=== PATIENT | female | born 1925 | race Hispanic/Latino ===

== ENCOUNTER 2017-06-30 00:12 | Inpatient (IN) | payer MEDICARE, OTHER ==
[2017-06-30 00:12] VITALS: BMI 28.3
--- NOTE | 2017-06-30 00:29 | ED PDOC ---
Arrival/HPI - General Chief Complaint: Weakness/Neurological Deficit Time Seen by Provider: 06/30/17 00:20 Historian: Patient, Family - History of Present Illness Narrative History of Present Illness (Text): 06/30/17 00:27 Delores Velasquez is an 89 year old female, whose past medical history inlcudes hypertension, hyperlipidemia, diabetes, and breast cancer, who presents to the Emergency department brought in by EMS accompanied by family for generalized weakness. Patient states she has been experiencing shortness of breath with associated URI symptoms for 1 week and was placed on antibiotics by her PMD.Patient with orthopnea. Family states tonight patient had periods of confusion and patient notes she felt near-syncopal. Relative also note patient was unable to ambulate on her own secondary to weakness. Patient denies any fever, chills, chest pain, nausea, vomiting, neck pain, headache, dizziness, or any other complaints. PMD: Dr. Oneal Oncologist: Dr. Zepeda Time/Duration: 1 week Symptom Onset: Gradual Symptom Course: Unchanged Activities at Onset: Light Context: Home Past Medical History - Provider Review Nursing Documentation Reviewed: Yes - Infectious Disease Hx of Infectious Diseases: None - Cardiac Hx Hypertension: Yes - Pulmonary Hx Respiratory Disorders: No - Neurological Hx Neurological Disorder: No - HEENT Hx Blind: Yes (OS) - Renal Hx Renal Disorder: No - Endocrine/Metabolic Hx Diabetes Mellitus Type 2: Yes - Hematological/Oncological Hx Blood Disorders: No - Integumentary Hx Dermatological Disorder: No - Musculoskeletal/Rheumatological Hx Falls: No - Gastrointestinal Hx Gastrointestinal Disorders: No - Genitourinary/Gynecological Hx Reproductive Disorders: Yes (breast ca with mets to spine) - Psychiatric Hx Psychophysiologic Disorder: No Hx Substance Use: No - Surgical History Hx Cholecystectomy: Yes Hx Dilation and Curettage: Yes - Anesthesia Hx Malignant Hyperthermia: No Family/Social History - Physician Review Nursing Documentation Reviewed: Yes Family/Social History: Unknown Family HX Smoking Status: Never Smoked Hx Alcohol Use: No Hx Substance Use: No Allergies/Home Meds Allergies/Adverse Reactions: Allergies No Known Allergies Allergy (Verified 08/16/16 20:04) Home Medications: Home Meds Medication Instructions Recorded Confirmed Amoxicillin/Potassium Clav 1 tab PO BID 06/30/17 06/30/17 [Augmentin 500 mg-125 mg] Atorvastatin [Lipitor] 20 mg PO DAILY 06/30/17 06/30/17 Ergocalciferol (Vitamin D2) 50,000 unit PO QWK 06/30/17 06/30/17 [Vitamin D2] Exemestane [Aromasin] 25 mg PO DAILY 06/30/17 06/30/17 Levothyroxine Sodium [Levoxyl] 88 mcg PO DAILY 06/30/17 06/30/17 Lisinopril [Zestril] 20 mg PO BID 06/30/17 06/30/17 Metoprolol Succinate [Toprol XL] 100 mg PO DAILY 06/30/17 06/30/17 amLODIPine [Norvasc] 10 mg PO DAILY 06/30/17 06/30/17 glyBURIDE [Glyburide] 5 mg PO BID 06/30/17 06/30/17 hydroCHLOROthiazide [Hydrodiuril] 25 mg PO DAILY 06/30/17 06/30/17 Review of Systems - Physician Review All systems were reviewed & negative as marked: Yes - Review of Systems Constitutional: Other (+generalized weakness). absent: Fevers Eyes: Normal ENT: Other (+URI symptoms) Respiratory: SOB Cardiovascular: Other (+near-syncopal). absent: Chest Pain Gastrointestinal: Normal. absent: Abdominal Pain, Diarrhea, Nausea, Vomiting Genitourinary Female: Normal. absent: Dysuria, Frequency, Hematuria, Urine Output Changes Musculoskeletal: Normal. absent: Back Pain, Neck Pain Skin: Normal. absent: Rash Neurological: Other (+disoriented). absent: Headache, Dizziness Endocrine: Normal Hemo/Lymphatic: Normal Psychiatric: Normal Physical Exam Vital Signs Reviewed: Yes Vital Signs Temp Pulse Resp BP Pulse Ox 06/30/17 02:25 125/67 06/30/17 01:57 54 L 16 143/88 99 06/30/17 00:22 97.7 F 61 18 163/72 H 99 Temperature: Afebrile Blood Pressure: Hypertensive Pulse: Regular Respiratory Rate: Normal Appearance: Positive for: Well-Appearing, Non-Toxic, Comfortable Pain Distress: None Mental Status: Positive for: Alert and Oriented X 3 - Systems Exam Head: Present: Atraumatic, Normocephalic Pupils: Present: PERRL Extroacular Muscles: Present: EOMI Conjunctiva: Present: Normal Mouth: Present: Moist Mucous Membranes Neck: Present: Normal Range of Motion. No: Meningeal Signs, MIDLINE TENDERNESS , Paraspinal Tenderness Respiratory/Chest: Present: Good Air Exchange, Rhonchi. No: Respiratory Distress, Accessory Muscle Use Cardiovascular: Present: Regular Rate and Rhythm, Normal S1, S2. No: Murmurs Abdomen: Present: Distention (Globus abdomen), Normal Bowel Sounds. No: Tenderness, Peritoneal Signs Back: Present: Normal Inspection. No: CVA Tenderness, Midline Tenderness, Paraspinal Tenderness Upper Extremity: Present: Normal Inspection, Normal ROM, NORMAL PULSES, Neurovascularly Intact, Capillary Refill < 2s. No: Cyanosis, Edema, Tenderness , Swelling, Erythema, Temperature Abnormalties, Deformity Lower Extremity: Present: Edema (Chronic bilateral lower extremity edema), NORMAL PULSES, Normal ROM, Erythema (Patches of erythema bilaterally, which is chronic), Neurovascularly Intact, Capillary Refill < 2 s, Other (Chronic venous stasis chnages). No: Tenderness, Deformity, Temperature Abnormalties Neurological: Present: GCS=15, CN II-XII Intact, Speech Normal, Motor Func Grossly Intact, Normal Sensory Function, Normal Cerebellar Funct Skin: Present: Warm, Dry, Normal Color. No: Rashes Psychiatric: Present: Alert, Oriented x 3, Normal Insight, Normal Concentration Medical Decision Making ED Course and Treatment: 06/30/17 00:27 Impression: 89 year old female complaining of weakness, near-syncope tonight with shortness of breath and URI symptoms for 1 week. Plan: -- CT Head w/o contrast -- EKG -- Chest X-ray -- Labs, cardiac enzymes, BNP -- Reassess and disposition Prior Visits: Notes and results from previous visits were reviewed. On 08/09/2016, pt was seen in the Emergency department for RLQ pain and weakness. Pt was admitted to the hospital for further evaluation. Progress Notes: Reviewed EKG, NSR at 60 bpm. LAD. RBBB. LVH. Non-specific ST/T wave changes. 06/30/17 01:37 Chest X-ray reviewed, shows scoliosis and mildly increased pulmonary vascular markings. 06/30/17 01:39 CT Head shows: Brain: Cerebral and cerebellar volume loss. Patchy hypodensity is seen in the periventricular and subcortical white matter. No hemorrhage. Ventricles: Unremarkable. No ventriculomegaly. Bones/joints: No acute fracture. Degenerative changes from occiput to C2. Soft tissues: Unremarkable. Vasculature: Vascular calcifications. Sinuses: Unremarkable. No acute sinusitis. Mastoid air cells: Unremarkable. No mastoid effusion. Orbits: Bilateral eye lenses are not well seen. This finding is unchanged from prior examination. Dental: Edentulous maxilla.Mandibular partial dentures in place. IMPRESSION: No evidence of an acute intracranial hemorrhage, midline shift or mass effect is identified. 06/30/17 02:08 BNP: 2000, Lasix ordered. 06/30/17 02:[address] Avendaño, who is aware and agrees with plan. Accepts pt in to his service. Pt will go to Telemetry observation for near-syncope and mild CHF. - Lab Interpretations Lab Results: 06/30/17 01:10 06/30/17 01:10 Lab Results 06/30/17 01:10: WBC 6.5, RBC 3.61, Hgb 10.8 L, Hct 34.0 L, MCV 94.2, MCH 29.9, MCHC 31.8, RDW 17.4 H, Plt Count 167, MPV 11.5 H 06/30/17 01:10: Sodium 138, Potassium 4.8, Chloride 101, Carbon Dioxide 27, Anion Gap 15, BUN 53 H, Creatinine 1.1, Est GFR ( Amer) 57, Est GFR (Non- Af Amer) 47, Random Glucose 62 L, Calcium 10.1, Total Bilirubin 0.6, AST 59 H, ALT 53, Alkaline Phosphatase 332 H, Lactate Dehydrogenase 499, Total Creatine Kinase 47, Troponin I < 0.01 D, NT-Pro-B Natriuret Pep 2000 H, Total Protein 7.5, Albumin 3.8, Globulin 3.7, Albumin/Globulin Ratio 1.0 L 06/30/17 01:10: PT 10.2, INR 0.90 L, APTT 33.6 I have reviewed the lab results: Yes - RAD Interpretation Radiology Orders: 06/30/17 00:28 CHEST PORTABLE [RAD] Stat 06/30/17 00:30 HEAD W/O CONTRAST [CT] Stat Human Services Professional: ED Physician, Radiologist - EKG Interpretation Interpreted by ED Physician: Yes Type: 12 lead EKG - Medication Orders Current Medication Orders: Discontinued Medications Furosemide (Lasix) 40 mg IVP ONCE ONE Stop: 01/13/18 02:09 Last Admin: 06/30/17 02:25 Dose: 40 mg MAR Blood Pressure Document 06/30/17 02:25 RD (Rec: 06/30/17 02:25 RD [id number]) Blood Pressure Blood Pressure (100/60-150/90 mm Hg) 125/67 IVP Administration Document 06/30/17 02:25 RD (Rec: 06/30/17 02:25 RD [id number][place] Charges for Administration # of IVP Administrations 1 - Scribe Statement The provider has reviewed the documentation as recorded by the Urvashi Perez Provider Scribe Attestation: All medical record entries made by the Scribe were at my direction and personally dictated by me. I have reviewed the chart and agree that the record accurately reflects my personal performance of the history, physical exam, medical decision making, and the department course for this patient. I have also personally directed, reviewed, and agree with the discharge instructions and disposition. Disposition/Present on Arrival - Present on Arrival Any Indicators Present on Arrival: No History of DVT/PE: No History of Uncontrolled Diabetes: No Urinary Catheter: No History of Decub. Ulcer: No History Surgical Site Infection Following: None - Disposition Have Diagnosis and Disposition been Completed?: Yes Diagnosis: Near syncope, CHF (congestive heart failure) Disposition: HOSPITALIZED Disposition Time: 02:23 Patient Plan: Observation Patient Problems: Current Active Problems Problem Status Onset Near syncope Acute Condition: STABLE Discharge Instructions (ExitCare): Heart Failure (ED) Referrals: Alex Oneal MD [Primary Care Provider] - Follow up with primary Forms: NPR (Kiswahili)
[2017-06-30 01:34] LABS: ALBUMIN 3.8 g/dL (3.0-4.8); ALT/SGPT 53 U/L (7-56); AST/SGOT 59 U/L (14-36); BLOOD UREA NITROGEN 53 mg/dL (7-21); CALCIUM 10.1 mg/dL (8.4-10.5); GFR AFRICAN-AMERICAN 57; GFR NON-AFRICAN AMERICAN 47
--- NOTE | 2017-06-30 01:38 | CT ---
EXAM: CT Head Without Intravenous Contrast CLINICAL HISTORY: 89 years old, female; Signs and symptoms; Dizziness; Additional info: Near syncope TECHNIQUE: Axial computed tomography images of the head/brain without intravenous contrast. All CT scans at this facility use one or more dose reduction techniques, viz.: automated exposure control; ma/kV adjustment per patient size (including targeted exams where dose is matched to indication; i.e. head); or iterative reconstruction technique. 387 images are submitted. Coronal and sagittal reformatted images were created and reviewed. COMPARISON: CT - HEAD W/O CONTRAST 2016-01-15 20:47 FINDINGS: Brain: Cerebral and cerebellar volume loss. Patchy hypodensity is seen in the periventricular and subcortical white matter. No hemorrhage. Ventricles: Unremarkable. No ventriculomegaly. Bones/joints: No acute fracture. Degenerative changes from occiput to C2. Soft tissues: Unremarkable. Vasculature: Vascular calcifications. Sinuses: Unremarkable. No acute sinusitis. Mastoid air cells: Unremarkable. No mastoid effusion. Orbits: Bilateral eye lenses are not well seen. This finding is unchanged from prior examination. Dental: Edentulous maxilla.Mandibular partial dentures in place. IMPRESSION: No evidence of an acute intracranial hemorrhage, midline shift or mass effect is identified.
[2017-06-30 01:42] LABS: B-TYPE NATRIURETIC PEPTIDE 2000 pg/mL (0-450); TROPONIN I < 0.01 ng/mL
[2017-06-30 01:48] LABS: INR 0.9 (0.93-1.08); PARTIAL THROMBOPLASTIN TIME 33.6 Seconds (25.1-36.5); PROTHROMBIN TIME 10.2 SECONDS (9.4-12.5)
[2017-06-30 01:52] LABS: HEMOGLOBIN 10.8 g/dL (12.0-16.0); MEAN CELL VOLUME 94.2 fl (80.0-105.0); MEAN CORPUSCULAR HEMOGLOBIN 29.9 pg (25.0-35.0); MEAN CORPUSCULAR HGB CONC 31.8 g/dl (31.0-37.0); RBC 3.61 10^6/uL (3.5-6.1); WHITE BLOOD COUNT 6.5 10^3/ul (4.5-11.0)
[2017-06-30 01:53] LABS: RED CELL DISTRIBUTION WIDTH 17.4 % (11.5-14.5)
[2017-06-30 01:54] LABS: MEAN PLATELET VOLUME 11.5 fl (7.0-11.0)
[2017-06-30] MEDS ORDERED: Dextrose 50% SYRINGE Inj (50 ml) IVP ONE ×3 (04:31→21:42)
[2017-06-30] MEDS ORDERED: Dextrose 50% SYRINGE Inj (50 ml) ONE ×3 (04:32→21:41)
--- NOTE | 2017-06-30 08:45 | RAD ---
HISTORY: sob COMPARISON: 08/12/2016 FINDINGS: LUNGS: No active pulmonary disease. PLEURA: Small bilateral pleural effusions CARDIOVASCULAR: Moderate cardiomegaly. OSSEOUS STRUCTURES: Scoliosis VISUALIZED UPPER ABDOMEN: Normal. OTHER FINDINGS: The patient is severely rotated to the left side. IMPRESSION: Small bilateral pleural effusions
--- NOTE | 2017-06-30 15:39 | CARD ---
APPROVED REPORT EKG Measurement Heart [id number] <Conclusion> Normal sinus rhythm Possible Left atrial enlargement Left axis deviation Right bundle branch block Left ventricular hypertrophy Abnormal ECG
[2017-06-30] MEDS: Metoprolol Succinate 100 mg XL Tab PO SCH (18:55)
[2017-06-30] MEDS: Levothyroxine 88 MCG TAB PO SCH (18:56)
--- NOTE | 2017-06-30 22:16 | CP.PCM.PN ---
Subjective - Date & Time of Evaluation Date of Evaluation: 06/30/17 Time of Evaluation: 22:13 - Subjective Subjective: S: Nurse called for FSBS of 30 mg % fro Ms Ron. Has no complaints. States that she has not been eating enough. Medical record was reviewed. O: Last Vital Signs 3 Temp 96.4 F L 06/30/17 17:55 Pulse 61 06/30/17 18:56 Resp 18 06/30/17 17:55 BP 148/72 06/30/17 18:56 Pulse Ox 95 06/30/17 17:55 Awake , alert , not in distress. LUNGS: Normal breathing pattern. A: Hypoglycemia. P:Dextrose 50 % 50 CC IV stat. Objective - Vital Signs/Intake and Output Vital Signs (last 24 hours): Temp Pulse Resp BP Pulse Ox 96.4 F L 61 18 148/72 95 06/30/17 17:55 06/30/17 18:56 06/30/17 17:55 06/30/17 18:56 06/30/17 17:55 Intake and Output: 06/30/17 07/01/17 18:59 06:59 Intake Total 600 Balance 600 - Medications Medications: Current Medications Amlodipine Besylate (Norvasc) 10 mg PO DAILY [facility] Last Admin: 06/30/17 18:56 Dose: 10 mg Atorvastatin Calcium (Lipitor) 20 mg PO DAILY [facility] Last Admin: 06/30/17 18:56 Dose: 20 mg Hydrochlorothiazide (Hydrodiuril) 25 mg PO DAILY [facility] Last Admin: 06/30/17 18:56 Dose: 25 mg Dextrose (Dextrose 5% In Water 1000 Ml) 1,000 mls @ 70 mls/hr IV .[id number] [facility] Last Admin: 06/30/17 15:38 Dose: 70 mls/hr Levothyroxine Sodium (Synthroid) 88 mcg PO DAILY [facility] Last Admin: 06/30/17 18:56 Dose: 88 mcg Lisinopril (Zestril) 20 mg PO BID [facility] Last Admin: 06/30/17 18:56 Dose: 20 mg Metoprolol Succinate (Toprol Xl) 100 mg PO DAILY [facility] Last Admin: 06/30/17 18:55 Dose: 100 mg - Labs Labs: PT 10.2 SECONDS (9.4-12.5) 06/30/17 01:10 INR 0.90 (0.93-1.08) L 06/30/17 01:10 APTT 33.6 Seconds (25.1-36.5) 06/30/17 01:10
[2017-07-01] MEDS: Metoprolol Succinate 100 mg XL Tab PO SCH (09:43)
[2017-07-01] MEDS: Levothyroxine 88 MCG TAB PO SCH (09:44)
[2017-07-01] MEDS ORDERED: Dextrose 50% SYRINGE Inj (50 ml) ONE (11:21)
[2017-07-01] MEDS: Dextrose 50% SYRINGE Inj (50 ml) IVP SCH ×3 (13:48→22:36)
--- NOTE | 2017-07-02 00:35 | HP ---
DATE OF EVALUATION: 06/30/2017 HISTORY OF PRESENT ILLNESS: Ms. Velasquez is an 89-year-old female, presented to the ED with a history of syncope. She has history of breast cancer. She was also complaining of URI. Rapid flu test was negative in the ER. She was found to be hypoglycemic with sugars of 40. She has history of diabetes mellitus type 2, on Glucotrol XL for diabetes. She has a history of breast cancer in remission. Hyperlipidemia and hypertension, blood pressure controlled on current medications. No fever. No chills. No rigors. PAST MEDICAL HISTORY: Diabetes mellitus type 2, history of breast cancer, metastatic lesion to the spine. SOCIAL HISTORY: Never smoked. No history of alcohol abuse. ALLERGIES: NO KNOWN DRUG ALLERGIES. HOME MEDICATIONS: Augmentin, vitamin D, Aromasin 25 mg daily, Synthroid 88 mcg daily, lisinopril 20 mg daily, amlodipine 10 mg daily, metoprolol XL 100 mg daily, hydrochlorothiazide 25 mg daily. REVIEW OF SYSTEMS: As per HPI. Rest of 12-point review of systems reviewed and negative. PHYSICAL EXAMINATION: GENERAL: Comfortable in bed, in no acute distress. VITAL SIGNS: Temperature 97.8, heart rate is 60 per minute, respiratory rate is 18 per minute, blood pressure 160/72. Pulse oximetry is 99% on room air. HEENT: Normal. NECK: No lymphadenopathy. CHEST: Air entry present and equal bilaterally. No added sounds. CARDIOVASCULAR: S1 and S2 normal. No murmur. No gallop. ABDOMEN: Soft and nontender. No hepatosplenomegaly. EXTREMITIES: Bilateral leg edema. MERCANTILE REPORTER: Alert and oriented x3. No focal sensory or motor deficits. SKIN: No petechiae. No rash. DIAGNOSTIC DATA: CAT scan of the head is unremarkable. Chest x-ray, no infiltrate. LABORATORY DATA: White count 6.5, hemoglobin 10.8, hematocrit 34, and platelets 167. Sodium 138, potassium 4.8, BUN 53, creatinine 1.1, glucose 62. ASSESSMENT AND PLAN: She will be admitted to the hospital telemetry monitoring. Amlodipine, we will continue antihypertensive, Norvasc 10 mg daily, Lipitor 20 mg daily. She will be started on dextrose drip at 70 mL an hour, D5 dextrose. We will continue thiazide 25 mg daily. Continue levothyroxine 88 mcg daily, lisinopril 20 mg p.o. b.i.d., metoprolol 100 mg daily. Regular diet. We will hold all antidiabetic medications. Leesa Valenzuela MD
--- NOTE | 2017-07-02 03:44 | CP.PCM.PN ---
Subjective - Date & Time of Evaluation Date of Evaluation: 07/02/17 Time of Evaluation: 03:40 - Subjective Subjective: Patient was seen at bedside because nurse calls and tells me that patient complains of not feeling well. BP is 118/59---> 146/53, HR 59/min, has been lisandro mostly, pulse ox 93% on 3L/ min, FSBS- 120 mg%. Patient has been on D5W for low sugar. Patient states that she can not catch her breath. Denies chest pain, nausea, sweating , palpitation. Medical record was reviewed. This 89 year old white woman was admitted with syncope. Has PMH of DM II , breast cancer with mets to spine. Objective - Vital Signs/Intake and Output Vital Signs (last 24 hours): Temp Pulse Resp BP Pulse Ox 98.7 F 56 L 18 118/59 L 94 L 07/02/17 00:01 07/02/17 00:01 07/02/17 00:01 07/02/17 00:01 07/01/17 18:00 Intake and Output: 07/01/17 07/02/17 18:59 06:59 Intake Total 770 780 Output Total 700 Balance 770 80 - Medications Medications: Current Medications Amlodipine Besylate (Norvasc) 10 mg PO DAILY [facility] Last Admin: 07/01/17 09:44 Dose: 10 mg Atorvastatin Calcium (Lipitor) 20 mg PO DAILY [facility] Last Admin: 07/01/17 09:44 Dose: 20 mg Dextrose (Dextrose 50% Inj) 50 ml IVP QID [facility] Last Admin: 07/01/17 22:36 Dose: 50 ml Hydrochlorothiazide (Hydrodiuril) 25 mg PO DAILY [facility] Last Admin: 07/01/17 09:42 Dose: 25 mg Dextrose (Dextrose 5% In Water 1000 Ml) 1,000 mls @ 70 mls/hr IV .[id number] [facility] Last Admin: 07/01/17 22:36 Dose: 70 mls/hr Levothyroxine Sodium (Synthroid) 88 mcg PO DAILY [facility] Last Admin: 07/01/17 09:44 Dose: 88 mcg Lisinopril (Zestril) 20 mg PO BID [facility] Last Admin: 07/01/17 18:46 Dose: 20 mg Metoprolol Succinate (Toprol Xl) 100 mg PO DAILY [facility] Last Admin: 07/01/17 09:43 Dose: 100 mg - Labs Labs: PT 10.2 SECONDS (9.4-12.5) 06/30/17 01:10 INR 0.90 (0.93-1.08) L 06/30/17 01:10 APTT 33.6 Seconds (25.1-36.5) 06/30/17 01:10 Most Recent Lab Values WBC 6.5 10^3/ul (4.5-11.0) 06/30/17 01:10 RBC 3.61 10^6/uL (3.5-6.1) 06/30/17 01:10 Hgb 10.8 g/dL (12.0-16.0) L 06/30/17 01:10 Hct 34.0 % (36.0-48.0) L 06/30/17 01:10 MCV 94.2 fl (80.0-105.0) 06/30/17 01:10 MCH 29.9 pg (25.0-35.0) 06/30/17 01:10 MCHC 31.8 g/dl (31.0-37.0) 06/30/17 01:10 RDW 17.4 % (11.5-14.5) H 06/30/17 01:10 Plt Count 167 10^3/uL (120.0-450.0) 06/30/17 01:10 MPV 11.5 fl (7.0-11.0) H 06/30/17 01:10 PT 10.2 SECONDS (9.4-12.5) 06/30/17 01:10 INR 0.90 (0.93-1.08) L 06/30/17 01:10 APTT 33.6 Seconds (25.1-36.5) 06/30/17 01:10 Sodium 138 mmol/L (132-148) 06/30/17 01:10 Potassium 4.8 mmol/L (3.6-5.0) 06/30/17 01:10 Chloride 101 mmol/L (98-107) 06/30/17 01:10 Carbon Dioxide 27 mmol/L (21-33) 06/30/17 01:10 Anion Gap 15 (10-20) 06/30/17 01:10 BUN 53 mg/dL (7-21) H 06/30/17 01:10 Creatinine 1.1 mg/dl (0.7-1.2) 06/30/17 01:10 Est GFR ( Amer) 57 06/30/17 01:10 Est GFR (Non-Af Amer) 47 06/30/17 01:10 POC Glucose (mg/dL) 121 mg/dL (65-110) H 07/02/17 02:47 Random Glucose 62 mg/dL (70-110) L 06/30/17 01:10 Calcium 10.1 mg/dL (8.4-10.5) 06/30/17 01:10 Total Bilirubin 0.6 mg/dL (0.2-1.3) 06/30/17 01:10 AST 59 U/L (14-36) H 06/30/17 01:10 ALT 53 U/L (7-56) 06/30/17 01:10 Alkaline Phosphatase 332 U/L (38-126) H 06/30/17 01:10 Lactate Dehydrogenase 499 U/L (333-699) 06/30/17 01:10 Total Creatine Kinase 47 U/L (35-230) 06/30/17 01:10 Troponin I < 0.01 ng/mL D 06/30/17 01:10 NT-Pro-B Natriuret Pep 2000 pg/mL (0-450) H 06/30/17 01:10 Total Protein 7.5 g/dL (5.8-8.3) 06/30/17 01:10 Albumin 3.8 g/dL (3.0-4.8) 06/30/17 01:10 Globulin 3.7 gm/dL 06/30/17 01:10 Albumin/Globulin Ratio 1.0 (1.1-1.8) L 06/30/17 01:10 - Constitutional Appears: Well, No Acute Distress - Head Exam Head Exam: ATRAUMATIC, NORMAL INSPECTION, NORMOCEPHALIC Additional comments: obese. - Eye Exam Eye Exam: Normal appearance - ENT Exam ENT Exam: Mucous Membranes Moist - Neck Exam Neck Exam: Normal Inspection - Cardiovascular Exam Cardiovascular Exam: REGULAR RHYTHM, JVD (+), +S1 (Normal.), +S2 (Normal.) - GI/Abdominal Exam GI & Abdominal Exam: absent: Distended - Rectal Exam Rectal Exam: Deferred - Exam Additional comments: Deferred. - Extremities Exam Extremities Exam: Normal Inspection, Pedal Edema (++) - Back Exam Back Exam: NORMAL INSPECTION - Neurological Exam Neurological Exam: Alert, Awake, Oriented x3 - Psychiatric Exam Psychiatric exam: Normal Affect, Normal Mood - Skin Skin Exam: Normal Color Assessment and Plan - Assessment and Plan (Free Text) Assessment: Hypoxia. Dyspnea. Syncope. Elevated BNP. HTN. DM II. Hypothyroidism. Breast cancer with mets. R/O PE. R/O cardiac event. Plan: Lasix 80 mg IV stat. Duoneb neb treatment. CXR-portable: Increase in pulmonary edema. EKG---> Sinus bradycardia, 1* block, RBBB, PVC. CBC with Diff. CMP. Troponin,Mag,Phos. BNP,D-dimer. Continue present management.
[2017-07-02] MEDS ORDERED: Albuterol-Ipratrop 3 mg / 0.5 (3 ml) UD IH STA (03:51)
[2017-07-02 04:14] LABS: ALBUMIN 3.7 g/dL (3.0-4.8); MAGNESIUM 1.8 mg/dL (1.7-2.2)
[2017-07-02 04:25] LABS: WHITE BLOOD COUNT 6.6 10^3/ul (4.5-11.0)
[2017-07-02 04:26] LABS: HEMOGLOBIN 10.1 g/dL (12.0-16.0); MEAN CELL VOLUME 93.6 fl (80.0-105.0); MEAN CORPUSCULAR HEMOGLOBIN 29.5 pg (25.0-35.0); MEAN CORPUSCULAR HGB CONC 31.6 g/dl (31.0-37.0); MEAN PLATELET VOLUME 11.2 fl (7.0-11.0); RBC 3.42 10^6/uL (3.5-6.1)
[2017-07-02] MEDS ORDERED: Sod Polystyrene Sulf 15 gm/60 ml Susp PO STA (05:06)
[2017-07-02] MEDS ORDERED: Enoxaparin 40 mg Syringe SC STA (05:06)
[2017-07-02 05:54] LABS: TROPONIN I 0.02 ng/mL
--- NOTE | 2017-07-02 09:28 | RAD ---
HISTORY: Difficulty breathing COMPARISON: 06/30/2017 FINDINGS: LUNGS: There is a right lower lobe infiltrate PLEURA: Small bilateral pleural effusions CARDIOVASCULAR: Mild cardiomegaly. Mild vascular congestion OSSEOUS STRUCTURES: No significant abnormalities. VISUALIZED UPPER ABDOMEN: Normal. OTHER FINDINGS: None. IMPRESSION: Vascular congestion with small bilateral pleural effusions and right lower lobe infiltrate
[2017-07-02] MEDS: Dextrose 50% SYRINGE Inj (50 ml) IVP SCH ×3 (10:20→18:16)
[2017-07-02] MEDS: Levothyroxine 88 MCG TAB PO SCH (10:21)
--- NOTE | 2017-07-02 10:26 | CARD ---
APPROVED REPORT EKG Measurement Heart [id number] <Conclusion> Sinus bradycardia with frequent premature ventricular complexes Left axis deviation Right bundle branch block PVC's are new
[2017-07-02] MEDS: Metoprolol Succinate 100 mg XL Tab PO SCH (10:27)
--- NOTE | 2017-07-02 10:27 | PN ---
DATE: 07/01/2017 SUBJECTIVE: She is comfortable in bed, in no acute distress. She is still hypoglycemic. Blood sugar this morning was 40. She is off all hypoglycemic agents. She is on D5W, water rate 70 mL an hour. She is eating full meals. Denies any chest pain or shortness of breath. MEDICATIONS: mg daily, Lipitor 20 mg daily, dextrose D5 water 70 mL an hour, hydrochlorothiazide 25 mg daily, Synthroid 88 mcg daily, lisinopril 20 mg daily, metoprolol 100 mg daily. REVIEW OF SYSTEMS: As per HPI. Rest of 12-point review of systems reviewed and negative. LABORATORY DATA: White count 6.5, hemoglobin 10.8, hematocrit 34 and platelet count 167. Blood sugar this morning 47. ASSESSMENT: 1. Hypoglycemia. 2. Diabetes mellitus type 2. 3. Syncope. 4. Hypertension. 5. Anemia. 6. History of breast cancer in remission. PLAN: She is getting D5W, eating normal meals. She is off all anti-hypoglycemic agent, still she is hypoglycemic. I will add 50% dextrose at 50 mL IV push 4 times a day. We will continue Synthroid and antihypertensive. Continue Lipitor. We will continue to monitor blood glucose closely. Anemia; hemoglobin and hematocrit stable. Breast cancer in remission, diabetes mellitus type 2, hyperglycemia, hypertension, blood pressure control on current medications. Leesa Valenzuela MD
--- NOTE | 2017-07-02 10:34 | NM ---
COMPARISON: 07/02/2017 TECHNIQUE: 30.0 mCi technetium 99-m DTPA aerosol. 3.8 mCI technetium 99-m MAA administered intravenously. FINDINGS: VENTILATION COMPONENT: Normal. PERFUSION COMPONENT: Normal. IMPRESSION: Lowprobability ventilation perfusion scan for pulmonary embolism.
--- NOTE | 2017-07-02 12:55 | US ---
HISTORY: Leg pain and swelling. Evaluate for DVT PHYSICIAN(S): Abner Fontana MD. TECHNIQUE: Duplex sonography and color-flow Doppler with graded compression were used to evaluate the deep venous systems of both lower extremities. The exam is limited by edema. FINDINGS: The visualized deep venous systems of both lower extremities are sonographically normal and compressible. Normal wave forms and augmentation are seen. There is no sonographic evidence for deep venous thrombosis in the visualized segments of both lower extremities. IMPRESSION: No sonographic evidence for deep venous thrombosis in the visualized segments of both lower extremities. Limited exam
[2017-07-02 13:44] LABS: T4 9.1 ug/dL (5.5-11.0)
[2017-07-02] MEDS: Insulin Reg-LOW-Coverage SC SCH (22:48)
--- NOTE | 2017-07-03 04:41 | CP.PCM.PN ---
Subjective - Date & Time of Evaluation Date of Evaluation: 07/03/17 Time of Evaluation: 04:38 - Subjective Subjective: S:No bowel movement for 6 days. No other complaints. Medical record was reviewed. O: Last Vital Signs 3 Temp 96.5 F L 07/03/17 00:01 Pulse 59 L 07/03/17 02:00 Resp 20 07/03/17 00:01 BP 149/69 07/03/17 00:01 Pulse Ox 98 07/03/17 00:01 stable. A:Constipation. P:Lactulose 30 CC PO x 1. Objective - Vital Signs/Intake and Output Vital Signs (last 24 hours): Temp Pulse Resp BP Pulse Ox 96.5 F L 59 L 20 149/69 98 07/03/17 00:01 07/03/17 02:00 07/03/17 00:01 07/03/17 00:01 07/03/17 00:01 Intake and Output: 07/02/17 07/03/17 18:59 06:59 Intake Total 660 Output Total 1000 Balance -340 - Medications Medications: Current Medications Amlodipine Besylate (Norvasc) 10 mg PO DAILY [facility] Last Admin: 07/02/17 10:26 Dose: 10 mg Atorvastatin Calcium (Lipitor) 20 mg PO DAILY [facility] Last Admin: 07/02/17 10:21 Dose: 20 mg Docusate Sodium (Colace) 100 mg PO BID [facility] Last Admin: 07/02/17 18:08 Dose: 100 mg Insulin Human Regular (Humulin R Low) [address] [facility] PRN Reason: Protocol Last Admin: 07/02/17 22:48 Dose: Not Given Lactulose (Enulose) 20 gm PO ONCE STA Stop: 07/03/17 04:37 Levothyroxine Sodium (Synthroid) 88 mcg PO DAILY [facility] Last Admin: 07/02/17 10:21 Dose: 88 mcg Lisinopril (Zestril) 20 mg PO BID [facility] Last Admin: 07/02/17 18:08 Dose: 20 mg Metoprolol Succinate (Toprol Xl) 100 mg PO DAILY [facility] Last Admin: 07/02/17 10:27 Dose: Not Given - Labs Labs: PT 10.2 SECONDS (9.4-12.5) 06/30/17 01:10 INR 0.90 (0.93-1.08) L 06/30/17 01:10 APTT 33.6 Seconds (25.1-36.5) 06/30/17 01:10
[2017-07-03 07:20] LABS: HEMOGLOBIN 9.2 g/dL (12.0-16.0); MEAN CELL VOLUME 91.5 fl (80.0-105.0); MEAN CORPUSCULAR HGB CONC 31.7 g/dl (31.0-37.0); RBC 3.17 10^6/uL (3.5-6.1); RED CELL DISTRIBUTION WIDTH 15.6 % (11.5-14.5); WHITE BLOOD COUNT 5.6 10^3/ul (4.5-11.0)
[2017-07-03] MEDS ORDERED: Mineral Oil Enema 135 ml RC ONE (07:44)
[2017-07-03 07:52] LABS: ALBUMIN 3.2 g/dL (3.0-4.8); CALCIUM 8.4 mg/dL (8.4-10.5)
--- NOTE | 2017-07-03 09:19 | PN ---
DATE: 07/02/2017 SUBJECTIVE: The patient has no complaints of any chest pain, any shortness of breath or headaches PHYSICAL EXAMINATION: VITAL SIGNS: Temperature 98.4, pulse of 61, blood pressure is 120/62, respirations 12. GENERAL: The patient is lying in bed, flat, comfortable. HEENT: No oral lesion. Anicteric sclerae. Moist mucosa. NECK: No JVD, adenopathy, or thyromegaly. CARDIOVASCULAR: S1 and S2, regular. No murmurs, rubs, or gallops. LUNGS: Clear to auscultation bilaterally. No wheeze, rales, or rhonchi. ABDOMEN: Bowel sounds are positive, soft, nontender and nondistended. EXTREMITIES: No cyanosis, clubbing or edema. LABORATORY DATA: White count 6.6, creatinine 5.1. V/Q scan shows low probability. Duplex lower extremity Dopplers shows no evidence of DVT ASSESSMENT AND PLAN: 1. A fib 2. Diabetes type 2. 3. Syncope. 4. Hypothyroidism 5. Hypernatremia. Hypoglycemia. Hypertension. 6. Anemia. 7. History of breast cancer in remission. 8. Constipation. She is on D5 water. The patient is going to get Synthroid for hypothyroid. She is on a heart healthy diet. We will recheck finger stick. We will repeat her blood work tomorrow. The patient is currently comfortable. She has toxicity from her hypoglycemic medications. She is going to have continued followup for her sugars. She is on Lipitor for dyslipidemia. She is on Norvasc for hypertension. She is on Synthroid for hypothyroidism. She is agreeable to Transitional Care Unit. I will get physical therapy to see the patient. I did speak to the patient's grandson at the bedside to give an update on the patient's diagnoses and plan for care. Luciano Avendaño MD MTDJose Angel
--- NOTE | 2017-07-03 09:44 | PN ---
DATE: 07/03/2017 SUBJECTIVE: The patient has no complaints of any chest pain,no shortness of breath and no headaches. PHYSICAL EXAMINATION: VITAL SIGNS: Temperature is 96.5, pulse of 110, blood pressure of 149/69, and respirations of 20. GENERAL: The patient is lying in bed, flat, comfortable. HEENT: No oral lesion. Anicteric sclerae. Moist mucosa. NECK: No JVD, adenopathy, or thyromegaly. CARDIOVASCULAR: S1 and S2, regular. No murmurs, rubs, or gallops. LUNGS: Clear to auscultation bilaterally. No wheeze, rales, or rhonchi. ABDOMEN: Bowel sounds are positive, soft, nontender and nondistended. EXTREMITIES: No cyanosis, clubbing or edema. LABORATORY DATA: White count of 5.6 and hemoglobin of 9.2. DIAGNOSTIC DATA: Right lower extremity Doppler is negative for DVT. V/Q scan is negative for PE. ASSESSMENT: 1. Hypoglycemia. 2. Hyponatremia. 3. Diabetes type 2. 4. Syncope secondary to hypoglycemia. 5. Hypertension. 6. Anemia. 7. History of breast cancer in remission. 8. Constipation. PLAN: The patient is currently comfortable. She has toxicity from her hypoglycemic medications. She is going to have continued followup for her sugars. She is on Lipitor for dyslipidemia. She is on Norvasc for hypertension. She is on Synthroid for hypothyroidism. She is going to continue with lisinopril for her hypertension. She is going to be given Fleet enema because of her complains of constipation. She is agreeable to Transitional Care Unit. I will get physical therapy to see the patient. I did speak to the patient's grandson at the bedside to give an update on the patient's diagnoses and plan for care. Luciano Avendaño MD
[2017-07-03] MEDS: Levothyroxine 88 MCG TAB PO SCH (09:53)
[2017-07-03] MEDS: Enoxaparin 40 mg Syringe SC SCH (09:53)
[2017-07-03] MEDS: Metoprolol Succinate 100 mg XL Tab PO SCH (10:14)
[2017-07-03] MEDS: Insulin Reg-LOW-Coverage SC SCH ×4 (10:14→22:08)
[2017-07-03] MEDS: Dextrose 5%/0.9% NS 1,000 ML IV SCH (12:37)
[2017-07-04] MEDS ORDERED: Albuterol-Ipratrop 3 mg / 0.5 (3 ml) UD IH STA (05:46)
[2017-07-04] MEDS ORDERED: Albuterol-Ipratrop 3 mg / 0.5 (3 ml) UD IH PRN (07:03)
[2017-07-04 07:17] LABS: HEMOGLOBIN 9.5 g/dL (12.0-16.0); MEAN CELL VOLUME 91.2 fl (80.0-105.0); MEAN CORPUSCULAR HEMOGLOBIN 28.9 pg (25.0-35.0); MEAN CORPUSCULAR HGB CONC 31.7 g/dl (31.0-37.0); RBC 3.29 10^6/uL (3.5-6.1); RED CELL DISTRIBUTION WIDTH 15.4 % (11.5-14.5); WHITE BLOOD COUNT 6.9 10^3/ul (4.5-11.0)
--- NOTE | 2017-07-04 07:48 | CON ---
DATE: 07/04/2017 PULMONARY CONSULTATION REASON FOR CONSULTATION: Shortness of breath. REFERRING PHYSICIAN: Luciano Avendaño MD HISTORY OF PRESENT ILLNESS: History is obtained via extensive discussion with the night nurse. I have also reviewed the chart at length. The patient does not appear to be an adequate historian. The patient is an 89-year-old female, with past medical history significant for hypertension, hyperlipidemia, diabetes mellitus, and breast cancer, who presented to [facility] - originally on 06/30/2017 - with increasing weakness and lethargy. In addition, there is a history of shortness of breath and cough for the past 1 week. There is no history of significant sputum production. There is no history of chest pain, coughing up of blood, or chest pain - made worse with deep respirations. There is no history of temperatures, chills or infectious exposure. There is no history of night sweats, weight loss or appetite change prior to the above events. No history of leg or calf pains. No history of syncope or diaphoresis. No history of recent travel or trauma. REVIEW OF SYSTEMS: There is a history of runny nose and nasal congestion. No history of nausea, vomiting, diarrhea. No acute urinary symptoms. Rest of the review of systems negative. ALLERGIES: NO KNOWN ALLERGIES. SOCIAL HISTORY: Negative for tobacco and negative for alcohol. FAMILY HISTORY: No inheritable diseases. HOME MEDICATIONS: Include hydrochlorothiazide, glyburide, Lipitor, Augmentin, Zestril, Toprol, and Norvasc. PHYSICAL EXAMINATION: GENERAL: The patient appears comfortable at the present time. She is not short of breath at rest. VITAL SIGNS: Temperature is 97.6, pulse 65, respirations 18/20, blood pressure 147/69. Oxygen saturation on nasal cannula is 95%. HEENT: Normocephalic, atraumatic. No JVD. CARDIOVASCULAR: Systolic ejection murmur at the lower left sternal border. No S3 gallop. LUNGS: Crackles noted at both bases. Mild bilateral rhonchi. No wheezing. EXTREMITIES: Positive for mild edema. No cyanosis, no clubbing. Calves are nontender to palpation. GI: Abdomen is soft, nontender and nondistended. Bowel sounds are positive. SKIN: No acute rash. NEUROLOGIC: Limited at the present time. PERTINENT LABORATORY DATA: Chest x-ray was last done on 06/22/2017. There is a small patchy right lower lobe infiltrate noted. There is also a mild increase in pulmonary vascular congestion. CBC: White count 5.6, hemoglobin 9.2, hematocrit 29.0, platelets of 12,000. Complete metabolic profile: Sodium 124, potassium 5.2, chloride 89, BUN 45, glucose 65, AST 60, ALT 62, alkaline phosphatase 291. Rest of the metabolic profiles within normal limits. Repeat A.m. labs are ordered and pending. IMPRESSION: 1. Right lower lobe pneumonia. 2. Acute bronchitis. 3. Oxygen desaturation. 4. Anemia. PLAN: Again, I did discuss the case with the night nurse at length. I have also reviewed the chart at length. The patient presented to [facility] with main complaints of increasing weakness and lethargy for a few days. In addition, as above, the patient also presented to [facility] with worsening pulmonary symptoms for the past week. I did review the chest x-ray as above. There is a small patchy right lower lobe infiltrate noted. At this point in time, I will start the patient on intravenous antibiotic therapy. I will also order a procalcitonin level. On physical exam, there is mild bronchospasm noted. The oxygen saturation on nasal cannula is currently 95%. I will start the patient on DuoNeb treatments and inhaled steroids. I will also order a repeat chest x-ray - for tomorrow - for comparison. Clinical status of the patient is guarded at this point in time. I will discuss the above with Dr. Avendaño. Thank you very much for this pulmonary consultation. Juan Ferreira MD KATHY
[2017-07-04 08:01] LABS: ALBUMIN 3.3 g/dL (3.0-4.8); BLOOD UREA NITROGEN 39 mg/dL (7-21); CALCIUM 8.3 mg/dL (8.4-10.5); GFR AFRICAN-AMERICAN > 60; GFR NON-AFRICAN AMERICAN 52; MAGNESIUM 1.6 mg/dL (1.7-2.2)
[2017-07-04 08:02] LABS: ALT/SGPT 83 U/L (7-56); AST/SGOT 86 U/L (14-36)
[2017-07-04] MEDS: Budesonide 0.5 mg/2 ml Inhal Susp UD IH SCH ×2 (08:14→20:11)
[2017-07-04] MEDS: Albuterol-Ipratrop 3 mg / 0.5 (3 ml) UD IH SCH ×3 (08:14→20:11)
[2017-07-04] MEDS: Insulin Reg-LOW-Coverage SC SCH ×4 (10:16→22:35)
[2017-07-04] MEDS: cefTRIAXone 1 gm 1 GM/100 ML BAG IVPB SCH (10:27)
[2017-07-04] MEDS: Enoxaparin 40 mg Syringe SC SCH (10:27)
[2017-07-04] MEDS: Metoprolol Succinate 100 mg XL Tab PO SCH (10:28)
[2017-07-04] MEDS: Levothyroxine 88 MCG TAB PO SCH (10:28)
[2017-07-04] MEDS: Dextrose 5%/0.9% NS 1,000 ML IV SCH ×2 (10:29→17:23)
--- NOTE | 2017-07-04 10:34 | PN ---
DATE: 07/04/2017 SUBJECTIVE: The patient has no complaints of any chest pain or shortness of breath. The patient had hypoglycemia by fingersticks yesterday. She was placed on D5. She has no headache. PHYSICAL EXAMINATION: VITAL SIGNS: Temperature is 97.2, pulse of 52, blood pressure 128/66, and respirations 18. GENERAL: The patient is lying in bed, flat, comfortable. HEENT: No oral lesion. Anicteric sclerae. Moist mucosa. NECK: No JVD, adenopathy, or thyromegaly. CARDIOVASCULAR: S1 and S2, regular. No murmurs, rubs, or gallops. LUNGS: Clear to auscultation bilaterally. No wheeze, rales, or rhonchi. ABDOMEN: Bowel sounds are positive, soft, nontender and nondistended. EXTREMITIES: No cyanosis, clubbing or edema. ASSESSMENT: 1. Hypoglycemia. 2. Hyponatremia. 3. Diabetes type 2. 4. Syncope secondary to hypoglycemia. 5. . 6. Anemia. 7. Constipation. 8. History of breast cancer, in remission. PLAN: The patient's fingersticks has been better. She is on D5, normal saline. She is going to continue with Lovenox for DVT prophylaxis. She is amlodipine for hypertension. She is on Synthroid for hypothyroidism. She is on Zestril. The patient is on heart-healthy diet. She was again on lactulose and Fleet Enema for constipation yesterday. for transitional care unit. The patient is not able to be seen by PT because of the hypoglycemia yesterday. Luciano Avendaño MD
[2017-07-04] MEDS ORDERED: Dextrose 50% SYRINGE Inj (50 ml) ONE (14:55)
[2017-07-04] MEDS ORDERED: Dextrose 50% SYRINGE Inj (50 ml) IVP ONE (15:05)
--- NOTE | 2017-07-04 23:58 | CP.PCM.PN ---
Subjective - Date & Time of Evaluation Date of Evaluation: 07/04/17 Time of Evaluation: 23:58 - Subjective Subjective: restlessness Objective - Vital Signs/Intake and Output Vital Signs (last 24 hours): Temp Pulse Resp BP Pulse Ox 97.6 F 71 20 137/68 96 07/04/17 18:00 07/04/17 18:00 07/04/17 18:00 07/04/17 18:00 07/04/17 18:00 - Medications Medications: Current Medications Albuterol/Ipratropium (Duoneb 3 Mg/0.5 Mg (3 Ml) Ud) 3 ml [facility] [id number] [facility] Last Admin: 07/04/17 20:11 Dose: 3 ml Albuterol/Ipratropium (Duoneb 3 Mg/0.5 Mg (3 Ml) Ud) 3 ml IH Q2H PRN PRN Reason: Shortness of Breath Amlodipine Besylate (Norvasc) 10 mg PO DAILY [facility] Last Admin: 07/04/17 10:28 Dose: 10 mg Atorvastatin Calcium (Lipitor) 20 mg PO DAILY [facility] Last Admin: 07/04/17 10:27 Dose: 20 mg Budesonide (Pulmicort Respules) 0.5 mg IH [id number] [facility] Last Admin: 07/04/17 20:11 Dose: 0.5 mg Docusate Sodium (Colace) 100 mg PO BID [facility] Last Admin: 07/04/17 17:44 Dose: 100 mg Enoxaparin Sodium (Lovenox) 40 mg SC DAILY [facility] PRN Reason: Protocol Last Admin: 07/04/17 10:27 Dose: 40 mg Ceftriaxone Sodium (Rocephin 1 Gram Ivpb) 1 gm in 100 mls @ 100 mls/hr IVPB DAILY [facility] PRN Reason: Protocol Last Admin: 07/04/17 10:27 Dose: 100 mls/hr Doxycycline Hyclate 100 mg/ (Sodium Chloride) 100 mls @ 100 mls/hr IVPB Q12 [facility] PRN Reason: Protocol Last Admin: 07/04/17 22:03 Dose: 100 mls/hr Dextrose/Sodium Chloride (Dextrose 5%/0.9% Ns 1000 Ml) 1,000 mls @ 100 mls/hr IV .Q10H [facility] Last Admin: 07/04/17 17:23 Dose: Not Given Insulin Human Regular (Humulin R Low) 0 units SC ACHS [facility] PRN Reason: Protocol Last Admin: 07/04/17 22:35 Dose: Not Given Levothyroxine Sodium (Synthroid) 88 mcg PO DAILY [facility] Last Admin: 07/04/17 10:28 Dose: 88 mcg Lisinopril (Zestril) 20 mg PO BID [facility] Last Admin: 07/04/17 17:44 Dose: 20 mg Metoprolol Succinate (Toprol Xl) 100 mg PO DAILY [facility] Last Admin: 07/04/17 10:28 Dose: 100 mg Nystatin (Nystop Topical Powder) 1 gm TOP BID [facility] - Labs Labs: 07/04/17 06:30 07/04/17 06:30 PT 10.2 SECONDS (9.4-12.5) 06/30/17 01:10 INR 0.90 (0.93-1.08) L 06/30/17 01:10 APTT 33.6 Seconds (25.1-36.5) 06/30/17 01:10
[2017-07-05] MEDS: Nystatin 100,000 Units/gm Topical Pow(15 gm) TOP SCH ×2 (00:42→20:16)
[2017-07-05] MEDS: Dextrose 5%/0.9% NS 1,000 ML IV SCH ×2 (00:42→10:15)
[2017-07-05] MEDS: Albuterol-Ipratrop 3 mg / 0.5 (3 ml) UD IH SCH ×4 (02:46→22:07)
[2017-07-05] MEDS ORDERED: Dextrose 50% SYRINGE Inj (50 ml) IVP ONE (07:23)
[2017-07-05] MEDS: Budesonide 0.5 mg/2 ml Inhal Susp UD IH SCH ×2 (07:25→22:07)
[2017-07-05 07:48] LABS: BLOOD UREA NITROGEN 33 mg/dL (7-21); CALCIUM 8.8 mg/dL (8.4-10.5); GFR AFRICAN-AMERICAN > 60; GFR NON-AFRICAN AMERICAN 59
[2017-07-05] MEDS: Insulin Reg-LOW-Coverage SC SCH ×4 (08:42→22:50)
[2017-07-05] MEDS: Levothyroxine 88 MCG TAB PO SCH (10:09)
[2017-07-05] MEDS: Metoprolol Succinate 100 mg XL Tab PO SCH (10:09)
[2017-07-05] MEDS: Enoxaparin 40 mg Syringe SC SCH (10:10)
[2017-07-05] MEDS: cefTRIAXone 1 gm 1 GM/100 ML BAG IVPB SCH (10:11)
[2017-07-05 11:29] LABS: MAGNESIUM 1.7 mg/dL (1.7-2.2)
--- NOTE | 2017-07-05 12:29 | PN ---
DATE: 07/05/2017 PULMONARY NOTE SUBJECTIVE: The patient appears very comfortable this morning. She is not short of breath at rest. PHYSICAL EXAMINATION: VITALS: Temperature is 98.0, pulse 77, respirations 18, blood pressure 130/61. Oxygen saturation on nasal cannula is 97%. HEENT: Normocephalic, atraumatic. No JVD. CARDIOVASCULAR: Systolic ejection murmur at the lower left sternal border. No S3 gallop. LUNGS: Crackles noted at both bases. Much less rhonchi. No wheezing. EXTREMITIES: Positive for mild edema. No cyanosis, no clubbing. Calves are nontender to palpation. GI: Abdomen is soft, nontender and nondistended. Bowel sounds are positive. SKIN: No acute rash. NEUROLOGIC: Limited at the present time. IMPRESSION: 1. Right lower lobe pneumonia. 2. Acute bronchitis. 3. Oxygen desaturation. 4. Anemia. PLAN: The patient appears very comfortable this morning. She is not short of breath at rest. She does state to feeling much better overall. On physical exam, her bronchospasm is certainly less. I will continue the current nebulizer treatments and inhaled steroids for now. The patient also remains on antibiotic therapy. Procalcitonin done yesterday was negative. However, I will continue with the antibiotic coverage for now. The patient does have a repeat chest x-ray scheduled for later today. I will check that when feasible. Clinical status of the patient is certainly improved overall. I will discuss the above with Dr. Avendaño. Juan Ferreira MD MTDJose Angel
[2017-07-05 13:08] LABS: PH,URINE 7.5 (4.7-8.0); URINE BILIRUBIN NEGATIVE (NEGATIVE); URINE BLOOD SMALL (NEGATIVE); URINE GLUCOSE (UA) NEGATIVE (NEGATIVE); URINE LEUKOCYTE ESTERASE NEGATIVE Leu/uL (NEGATIVE); URINE NITRATE NEGATIVE (NEGATIVE); URINE PROTEIN TRACE mg/dL (<30 mg/dL)
[2017-07-05 13:09] LABS: URINE APPEARANCE CLEAR (CLEAR); URINE COLOR YELLOW (YELLOW)
[2017-07-05 13:16] LABS: URINE WBC 0 - 2 /hpf (0-6)
--- NOTE | 2017-07-05 13:51 | RAD ---
HISTORY: COMPARISON: 07/02/2017. TECHNIQUE: Chest PA and lateral FINDINGS: LINES AND TUBES: None. LUNG AND PLEURA: There is mild pulmonary venous congestion. Again seen are bilateral pleural effusions with HEART AND MEDIASTINUM: The heart is not enlarged. The hilar and mediastinal contours are within normal limits. SKELETAL STRUCTURES: The bony structures are within normal limits for the patient's age. VISUALIZED UPPER ABDOMEN: Normal. OTHER FINDINGS: None. IMPRESSION: Bilateral pleural effusions and mild pulmonary venous congestion
[2017-07-05 17:06] VITALS: TEMP 97.8
[2017-07-06] MEDS: Albuterol-Ipratrop 3 mg / 0.5 (3 ml) UD IH SCH ×2 (01:14→09:41)
[2017-07-06] MEDS ORDERED: Dextrose 5%/0.9% NS 1,000 ML IV SCH (05:49)
[2017-07-06 06:33] LABS: HEMOGLOBIN 8.9 g/dL (12.0-16.0); MEAN CELL VOLUME 92.4 fl (80.0-105.0); MEAN CORPUSCULAR HEMOGLOBIN 29.3 pg (25.0-35.0); MEAN CORPUSCULAR HGB CONC 31.7 g/dl (31.0-37.0); MEAN PLATELET VOLUME 10.3 fl (7.0-11.0); RBC 3.04 10^6/uL (3.5-6.1); WHITE BLOOD COUNT 7.5 10^3/ul (4.5-11.0)
[2017-07-06 07:14] LABS: ALB/GLOB RATIO 0.8 (1.1-1.8); ALBUMIN 2.8 g/dL (3.0-4.8); ALT/SGPT 65 U/L (7-56); AST/SGOT 66 U/L (14-36); BLOOD UREA NITROGEN 30 mg/dL (7-21); CALCIUM 8.1 mg/dL (8.4-10.5); GFR AFRICAN-AMERICAN > 60; GFR NON-AFRICAN AMERICAN 59
[2017-07-06] MEDS: Insulin Reg-LOW-Coverage SC SCH (08:01)
--- NOTE | 2017-07-06 08:21 | PN ---
DATE: 07/06/2017 SUBJECTIVE: The patient has no complaints of any chest pain. No shortness of breath. No headaches. PHYSICAL EXAMINATION: VITAL SIGNS: Temperature is 97.8, pulse of 78, blood pressure 159/78, respirations 20. GENERAL: The patient is lying in bed, flat, comfortable. HEENT: No oral lesion. Anicteric sclerae. Moist mucosa. NECK: No JVD, adenopathy, or thyromegaly. CARDIOVASCULAR: S1 and S2, regular. No murmurs, rubs, or gallops. LUNGS: Clear to auscultation bilaterally. No wheeze, rales, or rhonchi. ABDOMEN: Bowel sounds are positive, soft, nontender and nondistended. EXTREMITIES: Lower extremities, there is 1+ edema. LABORATORY DATA: White count 6.9, hemoglobin 9.5. The patient had a chest x-ray, which showed bilateral pleural effusions. ASSESSMENT: 1. Hypoglycemia. 2. Bilateral pleural effusion. 3. Hyponatremia. 4. Diabetes type 2. 5. Syncope secondary to hypoglycemia. 6. Anemia. 7. Constipation. 8. History of breast cancer. PLAN: The patient is being followed by Pulmonary (Dr. Ferreira). I have reviewed his notes. The patient is receiving D5 normal saline. This is most likely the cause of the patient's lower extremity edema. This had to be done so that she does not become hypoglycemic because of her toxicity from her hypoglycemic medication. The patient is on Lipitor for dyslipidemia. She is on Lovenox for DVT prophylaxis. She is on Norvasc for hypertension. The patient is on Rocephin for IV antibiotics. She is on lisinopril for hypertension. The patient is on Colace for constipation. She has been started on Lasix twice a day, fingersticks have been better. Sodium has improved. She is going to be discharged to subacute rehab facility if her fingersticks are controlled. We will discontinue the patient's IV fluids today and see if her fingersticks remain normal. Luciano Avendaño MD
--- NOTE | 2017-07-06 08:35 | PN ---
DATE: 07/06/2017 PULMONARY PROGRESS NOTE SUBJECTIVE: The patient appears comfortable this morning. She is not short of breath at rest. PHYSICAL EXAMINATION VITAL SIGNS: (Last noted in the computer): Temperature is 97.8, pulse is 78, respirations are 18/20, and blood pressure is 159/78. Oxygen saturation on nasal cannula is 97%. HEENT: Normocephalic and atraumatic. NECK: No JVD. CARDIOVASCULAR: Systolic ejection murmur at the lower left sternal border. Questionable S3 gallop. LUNGS: Crackles noted at both bases. Minimal rhonchi. No wheezing. EXTREMITIES: Positive for mild edema. No cyanosis and no clubbing. Calves are nontender to palpation. GASTROINTESTINAL: Abdomen is soft, nontender and nondistended. Bowel sounds are positive. SKIN: No acute rash. NEUROLOGIC: Exam is limited at the present time. PERTINENT LABORATORY DATA: Chest x-ray was repeated yesterday and reviewed. There is a mild increase in pulmonary vascular congestion. There are also small bilateral pleural effusions. The right lower lobe infiltrate appears decreased in size. IMPRESSION 1. Right lower lobe pneumonia. 2. Acute bronchitis. 3. Oxygen desaturation. 4. Anemia. 5. Small pleural effusions. 6. Congestive heart failure. PLAN: The patient appears comfortable this morning. She is not short of breath at rest. She does state to feeling much better overall. On physical exam, her bronchospasm is less. In addition, the alveolar-arterial gradient is also less. I will continue the current nebulizer treatments and inhaled steroids for now. I did note the chest x-ray as above. In addition, the B-type nature peptide done yesterday was significantly elevated at 1900. The patient has been started on intravenous Lasix. I will also continue with the current antibiotic therapy for now. Clinical status of the patient is improved - but definitely remains guarded. I will discuss the above with Dr. Avendaño. Juan Ferreira MD [facility] CENTER[facility] Angel
[2017-07-06 08:53] VITALS: PULSE 72; RESP 18; O2SAT 95
[2017-07-06] MEDS: Budesonide 0.5 mg/2 ml Inhal Susp UD IH SCH (09:41)
[2017-07-06] MEDS: Enoxaparin 40 mg Syringe SC SCH (09:42)
[2017-07-06] MEDS: cefTRIAXone 1 gm 1 GM/100 ML BAG IVPB SCH (09:44)
[2017-07-06] MEDS: Nystatin 100,000 Units/gm Topical Pow(15 gm) TOP SCH (09:44)
[2017-07-06] MEDS: Levothyroxine 88 MCG TAB PO SCH (09:45)
[2017-07-06] MEDS: Metoprolol Succinate 100 mg XL Tab PO SCH (09:46)
[2017-07-06 09:53] VITALS: BP 145/62
== END 2017-07-06 14:16 | DRG 637 ==
LOC: ED 00:12 → ERH 02:24 → 3RSO 05:05 → OBSVTOIN 07-02 13:05 → 3RNO 07-05 00:56
PROVIDERS: ADMIT Internal Medicine Nephrology; ATTEND Internal Medicine Nephrology
DX: E11.649 Type 2 diabetes mellitus with hypoglycemia without coma (principal); J18.9 Pneumonia, unspecified organism; C79.51 Secondary malignant neoplasm of bone; E87.1 Hypo-osmolality and hyponatremia; I11.0 Hypertensive heart disease with heart failure; D64.9 Anemia, unspecified; I48.91 Unspecified atrial fibrillation; I50.9 Heart failure, unspecified; J20.9 Acute bronchitis, unspecified; E78.5 Hyperlipidemia, unspecified; E03.9 Hypothyroidism, unspecified; R09.02 Hypoxemia; K59.00 Constipation, unspecified; R55 Syncope and collapse; Z79.84 Long term (current) use of oral hypoglycemic drugs; Z85.3 Personal history of malignant neoplasm of breast